=== PATIENT | female | born 1970 | race Two or more races ===

== ENCOUNTER → 2024-07-07 | Outpatient (CLI) | payer MEDICAID, SELFPAY ==
--- NOTE | 2024-07-07 16:00 | XR_ITS ---
Examination: MRI of brain without intravenous contrast. MRI brain with intravenous contrast. Date and time of exam:July 07, 2024 1620 hours Comparison May 23, 2021 INDICATIONS: Diagnosis malignant neoplasm central portion left female breast, patient exhibits vertigo ataxia dizziness numbness to the face beginning 2 months ago Technique: Multiple axial and sagittal images of the brain to been obtained. Siemens high-resolution 1.52 Tasha short bore scanner utilized. Sagittal sections, T1 weighted images, TR 500, TE 14, are performed. Axial sections proton-density and T2-weighted images have been obtained. Inversion recovery axial images, TR 9260, TE 111, TR 2500. Diffusion weighted images, axial sections, TR 4800, TE 128, B value 1000. Axial sections, ADC map, TR 4800, TE 128. Axial and coronal images were also obtained post 3 cc gadolinium administered intravenously. Findings:: Enlargement of the sella turcica is not present. The optic chiasm and infundibular stalk are not remarkable. There is no localized enlargement of the medulla or daren. Fourth ventricle and cerebellar tonsils appear normal in position. No subacute area of hemorrhage density is seen. Fourth ventricle is midline. Mass in the cerebellopontine angle region is not evident. 7th and 8th nerve complexes exhibit symmetry Globes are symmetrical Orbital musculature including medial lateral rectus muscles do not exhibit abnormality Increased white matter signal is evident, scattered punctate foci increased signal in the frontal white matter, for instance FLAIR image 13 Effacement of the cortical sulcal markings is not identified. Mass effect upon the ventricular system is not identified. Diffusion-weighted images demonstrate no focus of restricted diffusion Contrast images demonstrate no abnormal enhancing cerebellar or cerebral lesions Impression: Negative for acute hemorrhage mass effect or midline shift No acute infarct A few scattered punctate foci increased signal in the frontal white matter, clinical correlation advised, demyelinating disease pattern not excluded No abnormal enhancing cerebellar or cerebral lesions
== END | disposition home or self-care (01) ==
PROVIDERS: PCP Family Medicine; Referring Provider Nurse Practitioner Family; Visit Provider Nurse Practitioner Family
DX: R90.82 White matter disease, unspecified (principal); C50.112 Malignant neoplasm of central portion of left female breast
CPT/HCPCS: 70553; A9579

== ENCOUNTER → 2024-07-15 | Outpatient (CLI) | payer MEDICAID, SELFPAY ==
--- NOTE | 2024-07-15 16:00 | XR_ITS ---
Examination: Pelvic ultrasound, transabdominal, complete Technique: Transabdominal ultrasound of the pelvis performed using grayscale imaging Date and time of exam: July 15, 2024 1614 hours INDICATIONS: Pelvic pain perineal pain beginning 3 months ago, diagnosis left breast cancer 2018 FINDINGS: Uterus 6.8 x 2.9 x 4.4 cm Endometrial stripe 0.6 cm Uterine body mass 14 x 16 x 12 mm Ovaries obscured by bowel gas IMPRESSION: Small uterine body area of fibroid degeneration
== END | disposition home or self-care (01) ==
LOC: CDIM 15:50
PROVIDERS: PCP Physician Assistant; Referring Provider Nurse Practitioner Family; Visit Provider Nurse Practitioner Family
DX: D25.9 Leiomyoma of uterus, unspecified (principal); C50.112 Malignant neoplasm of central portion of left female breast
CPT/HCPCS: 76856

== ENCOUNTER 2024-07-26 16:48 | Emergency (ER) | payer MEDICAID, SELFPAY ==
[2024-07-26 17:51] VITALS: BP 129/88; PULSE 78; RESP 20; TEMP 36.8; O2SAT 97
--- NOTE | 2024-07-26 18:15 | PD.EDRME ---
Rapid Medical Screening Exam RME Arrival date/time: 07/26/24 16:48 54-year-old female with past medical history of diabetes presents emergency department complaining of high blood sugar after not taking her metformin for the last 5 days. Chief Complaint: Recheck/Abnormal Lab/Rx Time Seen by Provider: 07/26/24 18:03 Vital signs: Vital Signs Temperature 98.3 F 07/26/24 17:51 Pulse Rate 78 07/26/24 17:51 Respiratory Rate 20 07/26/24 17:51 Blood Pressure 129/88 H 07/26/24 17:51 Pulse Oximetry (%) 97 07/26/24 17:51 Oxygen Delivery Method Room Air 07/26/24 17:51 Vital signs reviewed by provider: Yes
[2024-07-26 18:31] LABS: Lactate (Lactic Acid) 1.1 mMol/L (0.4-2.0)
[2024-07-26 18:32] LABS: Base Excess, Venous 3 (-3-3); O2 Saturation, Venous 56 % (96-97); PCO2, Venous 45 mmHg (36-56); PO2, Venous 30 mmHg (15-58)
[2024-07-26 18:32] LABS: Basophils # (Auto) 0.1 Thou/mm3 (0.0-0.2); Basophils % (Auto) 1 % (0-2.5); Eosinophils # (Auto) 0.7 Thou/mm3 (0.0-0.5); Eosinophils % (Auto) 8 % (0-10); Hematocrit 42.5 % (36.0-46.0); Hemoglobin 14.1 g/dL (12.0-16.0); Immature Granulocytes % (Auto) 0 % (0-0); Immature Granulocytes Auto 0.02 Thou/mm3 (0.00-0.00); Lymphocytes # (Auto) 1.9 Thou/mm3 (1.0-4.8); Lymphocytes % (Auto) 23 % (10-50); Mean Corpuscular HGB Conc 33.2 g/dl (31.0-37.0); Mean Corpuscular Volume 81 fL (80-100); Monocytes # (Auto) 0.5 Thou/mm3 (0.0-0.8); Monocytes % (Auto) 6 % (0-12); Neutrophils % (Auto) 61 % (37-80); Nucleated Red Blood Cell % 0 /100 WBC (0); Platelet Count 215 Thou/mm3 (140-440); RDW Standard Deviation 41.3 fL (36.4-46.3); Red Blood Count 5.22 Miln/mm3 (4.00-5.20); White Blood Count 8.2 Thou/mm3 (3.6-11.0)
[2024-07-26 18:38] LABS: Beta Hydroxybutyrate 0.7 mmol/L (<0.6)
[2024-07-26 18:52] LABS: Alanine Aminotransferase 43 U/L (10-49); Albumin, Serum 4.7 gm/dL (3.5-5.0); Albumin/Globulin Ratio 1.7 (1.2-2.2); Alkaline Phosphatase 132 U/L (46-116); Anion Gap 7 (7-16); Aspartate Amino Transferase 34 U/L (0-34); BUN/Creatinine Ratio 16 Ratio (12-20); Bilirubin,Total 0.5 mg/dL (0.3-1.2); Blood Urea Nitrogen 13 mg/dL (9-23); Calcium 10.1 mg/dL (8.3-10.6); Calcium (Corrected) 10.1 mg/dL (8.5-10.1); Chloride 99 mMol/L (98-107); Creatinine (Component) 0.8 mg/dL (0.6-1.3); Globulin 2.8 gm/dL (2.3-3.5); Glucose 313 mg/dL (74-106); Osmolality,Calculated 280 (275-295); Potassium 4.8 mMol/L (3.4-5.1); Sodium 134 mMol/L (136-145); Total Protein 7.5 gm/dL (5.7-8.2); eGFR > 60 See Note
--- NOTE | 2024-07-26 19:13 | PC.NURSE ---
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
[2024-07-26 19:56] LABS: Collection Type, Urine Clean Catch; RBC,Urine 0 /hpf (0-3); WBC,Urine 0 /hpf (0-5)
[2024-07-26 20:02] LABS: Bilirubin,Urine Negative (Negative); Blood,Urine Trace (Negative); Clarity,Urine Clear (Clear/Hazy); Color,Urine Colorless (Lt Yel-Yel); Culture Indicated,Urine Not Indicated; Glucose, Urine 4+ (Negative); Ketones,Urine 1+ (Negative); Leukocyte Esterase,Urine Negative (Negative); Nitrite,Urine Negative (Negative); PH,Urine 5.5 (5.0-7.0); Protein,Urine Negative (Neg - Trace); Specific Gravity,Urine 1.018 (1.001-1.035); Squamous Epithelial Cell,Urine < 1 /hpf (0-5); Urobilinogen,Urine Negative mg/dL (0.0-1.0)
--- NOTE | 2024-07-26 21:03 | PD.EDRECHK ---
ED Recheck Abnl Lab Rx-RME/HPI General Chief Complaint: Recheck/Abnormal Lab/Rx Stated Complaint: Blood sugar 454 Time Seen by Provider: 07/26/24 18:03 Source: patient Arrival date/time: 07/26/24 16:48 54-year-old female with past medical history of diabetes presents emergency department complaining of high blood sugar after not taking her metformin for the last 5 days. Patient requesting refill. Patient denies any fever, chills, nausea vomiting, dysuria, or any other associated symptom. Mode of arrival: ambulatory Limitations: no limitations RME / HPI RME / HPI narrative: 07/26/24 16:48 54-year-old female with past medical history of diabetes presents emergency department complaining of high blood sugar after not taking her metformin for the last 5 days. Related Data Home Medications ?Medication ?Instructions ?Recorded ?Confirmed hydrocodone 5 mg-acetaminophen 325 1 tab PO Q6H PRN Pain 12/16/20 12/16/20 mg tablet krill 500 mg-omega 3 115 mg-dha 30 1 cap PO QDAY 12/16/20 12/16/20 mg-epa 64 [id number] capsule (Antarctic Krill Oil) vitamin D3 250 mcg (10,000 1 cap PO 12/16/20 unit)-vitamin K2 45 mcg capsule Previous Rx's ?Medication ?Instructions ?Recorded docusate sodium 100 mg capsule 100 mg PO BID #20 caps 05/11/22 (Colace) polyethylene glycol 3350 17 gram 17 gm PO QDAY #30 ea 05/11/22 oral powder packet (Miralax) hydrocodone 5 mg-acetaminophen 325 1 tab PO BID PRN pain #6 tabs 02/03/24 mg tablet ibuprofen 600 mg tablet 600 mg PO Q6H #30 tabs 02/03/24 metformin 500 mg tablet 500 mg PO QDAY #30 tabs 07/26/24 Allergies Allergy/AdvReac Type Severity Reaction Status Date / Time No Known Allergies Allergy Verified 02/03/24 14:38 Review of Systems Review of Systems Systems Reviewed: All systems reviewed, normal except as documented Constitutional Constitutional: Reports system reviewed and no additional complaints, except as documented, Denies body ache(s), Denies chills and Denies fever(s) Eyes Eyes: Reports system reviewed and no additional complaints, except as documented and Denies change in vision ENT Ears, Nose, Mouth, and Throat: Reports system reviewed and no additional complaints, except as documented, Denies disequilibrium, Denies dizziness, Denies sore throat and Denies vertigo Cardiovascular Cardiovascular: Reports system reviewed and no additional complaints, except as documented, Denies chest pain and Denies dyspnea Respiratory Respiratory: Reports system reviewed and no additional complaints, except as documented, Denies chest congestion, Denies cough and Denies dyspnea Gastrointestinal Gastrointestinal: Reports system reviewed and no additional complaints, except as documented, Denies abdominal pain, Denies nausea and Denies vomiting Musculoskeletal Musculoskeletal: Reports system reviewed and no additional complaints, except as documented, Denies abnormal gait and Denies arthralgias Integumentary/Breasts Skin/Breast: Reports system reviewed and no additional complaints, except as documented, Denies erythema, Denies rash and Denies wounds Neurologic Neurologic: Reports system reviewed and no additional complaints, except as documented, Denies abnormal gait, Denies disequilibrium, Denies dizziness and Denies vertigo Past Medical History Past Medical History NEUROLOGIC: Negative Neurological Disorders or Seizures CARDIAC: Negative Cardiac Disorders, Congestive Heart Failure, Edema, Cellulitis or Varicose Veins RESPIRATORY: Negative Chronic Obstructive Pulmonary Disease (COPD) or Tuberculosis GASTROINTESTINAL: Negative Gastrointestinal Disorders or Hepatitis GENITOURINARY: Negative Genitourinary Disorders or Renal Disease REPRODUCTIVE: Positive Breast Cancer (LEFT BREAST CA) and Previous Pregnancies (x4) MUSCULOSKELETAL: Positive Musculoskeletal Disorders ENDOCRINE: Negative Endocrine Disorders, Diabetes Mellitus Type 1 or Diabetes Mellitus Type 2 HEMATOLOGIC: Negative Blood Disorders OTHER HISTORY: Positive Chemotherapy (Started 07/24 LAST IN NOVEMBER), Cancer and Breast Cancer (LEFT BREAST CA); Negative Hospitalization, Autoimmune Disease, Shingles, Falls, Blood Transfusions, Blood Transfusion Reaction, Anesthesia Reactions, MRSA, VRSA, Vancomycin-Resistant Enterococci, Chicken Pox, Measles or Mumps Family History FAMILY HISTORY: Positive Family Cardiac Disorders (SISTER (CHOLESTEROL)) and Family Surgery (SISTER); Negative Family Psychiatric Problems, Family Respiratory Disorders, Family Gastrointestinal Problems, Family Cancer or Family Anesthesia Reaction Surgical History SURGICAL: Positive Eye Surgery (BILATERAL) and Nose Surgery (sinus); Negative Pacemaker, Hysterectomy or Tubal Ligation Social History SMOKING STATUS: Never smoker ED Exam General Limitations: Present no limitations General appearance: Present alert and in no apparent distress Head Head exam: Present atraumatic Eye Eye exam: Present normal appearance, PERRL and EOMI ENT ENT exam: Present normal exam, normal oropharynx and mucous membranes moist Neck Neck exam: Present normal inspection, full ROM and trachea midline Chest Chest inspection: Present normal inspection and symmetric chest wall rise Respiratory Respiratory exam: Present normal lung sounds bilaterally Cardiovascular Cardiovascular exam: Present regular rate, normal rhythm and normal heart sounds Abdominal Exam Abdominal exam: Present soft and normal bowel sounds Extremities Exam Extremities exam: Present normal inspection and full ROM Back Exam Back exam: Present normal inspection and full ROM Neurological Exam Neurological exam: Present alert, oriented X3 and CN II-XII intact Psychiatric Psychiatric exam: Present normal affect and normal mood Skin Skin exam: Present warm, dry, intact and normal color Course Quality Measures none Orders Category Date Time Status Bedside Blood Glucose NOW Care 07/26/24 18:09 Completed Beta Hydroxybutyrate Stat Lab 07/26/24 18:15 Completed CBC Stat Lab 07/26/24 18:15 Completed CMP [Comprehensive Metabolic Panel] Stat Lab 07/26/24 18:15 Completed Lactic Acid [Lactate (Lactic Acid)] Stat Lab 07/26/24 18:19 Completed Urinalysis, C/S if Indicated Stat Lab 07/26/24 19:40 Completed VBG [Venous Blood Gas] Stat Lab 07/26/24 18:19 Completed metFORMIN [Glucophage] Med 07/26/24 21:04 Discontinued 500 mg PO X1 ONE Vital Signs Vital signs: Vital Signs Temperature 98.3 F 07/26/24 17:51 Pulse Rate 78 07/26/24 17:51 Respiratory Rate 20 07/26/24 17:51 Blood Pressure 129/88 H 07/26/24 17:51 Pulse Oximetry (%) 97 07/26/24 17:51 Oxygen Delivery Method Room Air 07/26/24 17:51 97% room air within normal limits Recheck / Abnormal Lab / Rx MDM Narrative MDM Narrative:: 54-year-old female with past medical history of diabetes presents emergency department complaining of high blood sugar after not taking her metformin for the last 5 days. Patient requesting refill. Patient denies any fever, chills, nausea vomiting, dysuria, or any other associated symptom. Patient appears nontoxic and hemodynamic stable. CBC was unremarkable for any leukocytosis. CMP was unremarkable other than blood sugar 313. VBG and beta hydroxy ordered and unremarkable for DKA with anion gap closed. Patient requesting refill of metformin until she sees her primary care provider. Patient given dose of metformin before discharge and prescribed 30-day supply instructed to follow-up with primary care provider. Patient data External records reviewed:: [facility] previous records Clinical information provided by:: patient Social determinants that could affect healthcare access:: none Patient has the following chronic illnesses:: See chart How is presenting disease/condition affected by chronic disease/condition?: exacerbated by Evaluation data The following diagnostics were reviewed and interpreted by me:: lab results Lab and/or radiology exams considered but not ordered:: Ordered Interpretation Summary: Interpreted by me Medications / Prescriptions Medications or Prescriptions considered but not ordered:: Ordered Medication administrations:: Medication Administration History Discontinued Medications Metformin HCl (Metformin 500 Mg Tablet) 500 mg PO X1 ONE Stop: 07/26/24 21:05 Last Admin: 07/26/24 21:48 Dose: 500 mg Documented By: EE Given Consultations Consultation(s) initiated? (list below): No Diagnosis Recheck Differential Diagnosis: encounter for medication refill Most likely diagnosis given after review of the tests above:: Encounter for medication refill Hyperglycemia due to diabetes Admission Indicated Admission indicated?: not indicated Admission Request Was there a request for admission?: No Disposition Plan Disposition Plan: Discharge Discharge Attestation Discharge Attestation: The patient and all family members were given an opportunity to ask questions and understood the discharge instructions. Discharge instructions specifically effects, indications for sooner follow up or return to the emergency department, and the expected course of current diagnosis. Patient condition: Stable Discharge Plan Plan Patient Disposition: HOME (Self Care) Disposition Comment: Stable Prescriptions/Referrals Prescriptions/Med Rec: New metformin 500 mg tablet 500 mg PO QDAY Qty: 30 0RF No Action hydrocodone-acetaminophen 5-325 mg Tablet 1 tab PO Q6H PRN (Reason: Pain) vitamin D3-vitamin K2 250 mcg (10,000 unit)-45 mcg Capsule 1 cap PO Antarctic Krill Oil [id number] mg Capsule 1 cap PO QDAY polyethylene glycol 3350 [Miralax] 17 gram powder in packet 17 gm PO QDAY Qty: 30 0RF docusate sodium [Colace] 100 mg capsule 100 mg PO BID Qty: 20 0RF hydrocodone-acetaminophen 5-325 mg tablet 1 tab PO BID MDD 10 PRN (Reason: pain) Qty: 6 0RF ibuprofen 600 mg tablet 600 mg PO Q6H Qty: 30 0RF Referrals: Christ Tran MD [Primary Care Provider] - In 1 week Problem List Clinical Impression: Encounter for medication refill, Hyperglycemia due to diabetes mellitus Patient/Caregiver Discharge Instructions Discharge Activity: activity as tolerated Education Materials: Diabetes: The Benefits of Exercise, ED Diet: Diabetes Additional Instructions: Take metformin as prescribed. Follow-up with primary care provider in 2 to 3 days and request refill of metformin as only a 30-day supply was provided. Diabetic diet education was provided. Return to emergency department for any worsening symptoms or as needed. Print Language: Yemeni Stand Alone Forms: Joan Award Info., Patient Portal Info Letter PA/STUDENT FINANCIAL AID MANAGER Supervising Physician PA/STUDENT FINANCIAL AID MANAGER Supervising Physician: Dr. Partida
[2024-07-26] MEDS: metFORMIN 500 MG TABLET PO (21:48)
[2024-07-26 21:51] VITALS: BP 124/67; PULSE 74; RESP 19; TEMP 36.7; O2SAT 99
== END 2024-07-26 21:51 | disposition home or self-care (01) ==
PROVIDERS: Emergency Provider Emergency Medicine; PCP Family Medicine; Referring Provider Emergency Medicine
DX: Z76.0 Encounter for issue of repeat prescription (principal); E11.65 Type 2 diabetes mellitus with hyperglycemia
CPT/HCPCS: 36415; 80053; 81001; 82010; 82803; 83605; 85025; 99283; A9270

== ENCOUNTER 2024-08-18 14:20 | Outpatient (RCR) | payer MEDICAID, SELFPAY | END 2024-09-04 23:59 | disposition home or self-care (01) | LOC: SCTC 14:20 | PROVIDERS: Referring Provider Nurse Practitioner Family; Visit Provider Nurse Practitioner Family | DX: C50.112 Malignant neoplasm of central portion of left female breast (principal); C50.812 Malignant neoplasm of overlapping sites of left female breast; Z90.12 Acquired absence of left breast and nipple; Z17.1 Estrogen receptor negative status [ER-]; Z17.22 Progesterone receptor negative status; Z17.32 Human epidermal growth factor receptor 2 negative status; D25.9 Leiomyoma of uterus, unspecified; Z78.0 Asymptomatic menopausal state; E11.9 Type 2 diabetes mellitus without complications | CPT/HCPCS: 99212; G0463 ==

== ENCOUNTER → 2024-10-05 | Outpatient (CLI) | payer MEDICAID, SELFPAY ==
--- NOTE | 2024-10-05 11:15 | XR_ITS ---
Examination: Diagnostic digital mammography, unilateral, right Computer aided detection 3-D breast Tomosynthesis, unilateral Date and time of exam: October 05, 2024 1104 hours INDICATIONS: Mammogram September 11, 2023 4 mm oval mass upper outer right breast Technique: Nonmagnified MLO, CC views of the right breast have been obtained, reconstructed from 3-D Tomosynthesis images. R2 computer aided detection program utilized for evaluation of suspicious masses and/or abnormal calcifications. 3-D Tomosynthesis images obtained. Findings: Scattered areas of fibroglandular density Stable 4 mm circumscribed nodule outer right breast Impression: BI-RADS category 2: Benign findings Return to yearly follow-up mammography
== END | disposition home or self-care (01) ==
PROVIDERS: Referring Provider Nurse Practitioner Family; Visit Provider Nurse Practitioner Family
DX: R92.321 Mammographic fibroglandular density, right breast (principal); C50.112 Malignant neoplasm of central portion of left female breast
CPT/HCPCS: 77061; 77065; G0279